=== PATIENT | female | born 1995 | race American Indian/Alaskan Native ===

== ENCOUNTER 2018-09-08 11:36 | Emergency (ER) | payer OTHER ==
[2018-09-08 11:47] VITALS: BP 116/71
--- NOTE | 2018-09-08 11:51 | Emergency Department Report ---
ED Rash HPI - HPI Chief Complaint: Eye Problems Stated Complaint: SWOLLEN EYES/MOUTH/BREAKOUTS Time Seen by Provider: 09/08/18 11:44 Duration: 5 Days Location: Other Suspected Cause: Unknown Rash Symptoms: No Itching, No Facial Swelling, No Tongue/Oral Swelling, No Breathing Difficulties, No Choking Sensation, No Wheezing/Dyspnea, No Peeling, No Blistering, No Fever, No Lightheaded, No Malaise, No Myalgias Severity: mild Other History: PRESENTS WITH EYE PUFFINESS AND CRACKED CORNER LIPS. NEW TO AREA. NO FEVER. NO COUGH. HAS TAKEN NO OTC MEDS ED Review of Systems ROS: Stated complaint: SWOLLEN EYES/MOUTH/BREAKOUTS Other details as noted in HPI Comment: All other systems reviewed and negative ED Past Medical Hx - Past Medical History Previous Medical History?: No - Surgical History Past Surgical History?: No - Family History Family history: no significant - Social History Smoking Status: Never Smoker Substance Use Type: None - Medications Home Medications: Home Medications Medication Instructions Recorded Confirmed Last Taken Type Coconut Oil/Beeswax/Safflower [Lip 90 gm TP QID #1 oint...g. 09/08/18 Unknown Rx [place] [employer] Natural] Fluticasone [Flonase] 1 spray NS QDAY #1 bottle 09/08/18 Unknown Rx Prednisone [predniSONE 10 mg 10 mg PO .TAPER #1 tab.ds.pk 09/08/18 Unknown Rx (6-Day Pack, 21 Tabs)] Rash Exam - Exam General: Vital signs noted. No distress. Alert and acting appropriately. HEENT: No Periorbital Edema, No Conjuctival Injection, No Chemosis, No Perioral Edema, No Tongue Edema, No Uvular Edema, No Compromised Airway, No Drooling Lungs: Yes Good Air Exchange, No Wheezes, No Ronchi, No Stridor, No Cough, No Labored Respirations Heart: Yes Regular, No Murmur Skin: No Urticarial Rash Other: Positive: Abdomen Normal, Neurologic Normal, Musculoskeletal Normal ED Medical Decision Making - Medical Decision Making Vital Signs 09/08/18 11:41 Temperature 98.2 F Pulse Rate 60 Respiratory 18 Rate Blood Pressure 116/71 [Right] O2 Sat by Pulse 100 Oximetry NEW TO [facility] FROM [place] HAS PUFFY EYES AND CRACKED CORNERS OF HER MOUTH NO PMH NO RX VSS HEALTHY FEMALE DC HOME WITH DC PLAN OF CARE. Critical care attestation.: If time is entered above; I have spent that time in minutes in the direct care of this critically ill patient, excluding procedure time. ED Disposition Clinical Impression: Allergic conjunctivitis, Seasonal allergies Disposition: DC-01 TO HOME OR SELFCARE Is pt being admited?: No Does the pt Need Aspirin: No Condition: Stable Instructions: Conjunctivitis (ED), Allergic Rhinitis (ED) Additional Instructions: HYDRATE WELL WITH WATER MEDS ORDERED TODAY ANABELLA LIP BALM TO YOUR LIPS FOLLOW UP PCP REFERRAL BELOW Prescriptions: Fluticasone [Flonase] 1 spray NS QDAY #1 bottle Coconut Oil/Beeswax/Safflower [Lip [place] [employer] Natural] 90 gm TP QID #1 oint...g. Prednisone [predniSONE 10 mg (6-Day Pack, 21 Tabs)] 10 mg PO .TAPER #1 tab.ds.pk Referrals: [facility] [Outside] - 3-5 Days Time of Disposition: 11:49
== END 2018-09-08 12:00 | disposition home or self-care (01) ==
LOC: ED 11:36
DX: H10.13 Acute atopic conjunctivitis, bilateral (principal); J30.2 Other seasonal allergic rhinitis
CPT/HCPCS: 99282

== ENCOUNTER 2018-10-18 09:30 | Emergency (ER) | payer SELFPAY ==
[2018-10-18 09:44] VITALS: BP 106/71
[2018-10-18] MEDS ORDERED: IBUPROFEN PO ONE (10:42)
[2018-10-18] MEDS ORDERED: IBUPROFEN ONE (10:42)
--- NOTE | 2018-10-18 10:43 | Emergency Department Report ---
ED ENT HPI - General Chief complaint: Dental/Oral Stated complaint: TOOTHACHE Time Seen by Provider: 10/18/18 10:18 Source: patient Mode of arrival: Ambulatory Limitations: No Limitations - History of Present Illness Initial comments: Patient is a 23-year-old [place] female who has pain at tooth #15 for the last week which is now worsening with swelling to the face. Patient states is been no problems swallowing or difficulty breathing. Patient states the pain is a 10 out of 10 in severity and she is unable to eat secondary to this pain. Patient states she hasn't eaten in 2-3 days. Patient denies any lightheadedness. Patient states is been no fevers chills nausea vomiting. - Related Data Previous Rx's Medication Instructions Recorded Last Taken Type Coconut Oil/Beeswax/Safflower [Lip 90 gm TP QID #1 oint...g. 09/08/18 Unknown Rx [place] [employer] Natural] Fluticasone [Flonase] 1 spray NS QDAY #1 bottle 09/08/18 Unknown Rx Prednisone [predniSONE 10 mg 10 mg PO .TAPER #1 tab.ds.pk 09/08/18 Unknown Rx (6-Day Pack, 21 Tabs)] Ibuprofen [Motrin 600 MG tab] 600 mg PO Q8H PRN #20 tablet 10/18/18 Unknown Rx Penicillin Vk [Veetids TAB] 250 mg PO QID #28 tablet 10/18/18 Unknown Rx traMADol [Ultram] 50 mg PO Q6HR PRN #12 tablet 10/18/18 Unknown Rx Allergies Allergy/AdvReac Type Severity Reaction Status Date / Time No Known Allergies Allergy Verified 09/08/18 11:37 ED Dental HPI - General Chief complaint: Dental/Oral Stated complaint: TOOTHACHE Time Seen by Provider: 10/18/18 10:18 Source: patient Mode of arrival: Ambulatory Limitations: No Limitations - Related Data Previous Rx's Medication Instructions Recorded Last Taken Type Coconut Oil/Beeswax/Safflower [Lip 90 gm TP QID #1 oint...g. 09/08/18 Unknown Rx [place] [employer] Natural] Fluticasone [Flonase] 1 spray NS QDAY #1 bottle 09/08/18 Unknown Rx Prednisone [predniSONE 10 mg 10 mg PO .TAPER #1 tab.ds.pk 09/08/18 Unknown Rx (6-Day Pack, 21 Tabs)] Ibuprofen [Motrin 600 MG tab] 600 mg PO Q8H PRN #20 tablet 10/18/18 Unknown Rx Penicillin Vk [Veetids TAB] 250 mg PO QID #28 tablet 10/18/18 Unknown Rx traMADol [Ultram] 50 mg PO Q6HR PRN #12 tablet 10/18/18 Unknown Rx Allergies Allergy/AdvReac Type Severity Reaction Status Date / Time No Known Allergies Allergy Verified 09/08/18 11:37 ED Review of Systems ROS: Stated complaint: TOOTHACHE Other details as noted in HPI Comment: All other systems reviewed and negative ED Past Medical Hx - Past Medical History Previous Medical History?: No - Surgical History Past Surgical History?: No - Social History Smoking Status: Never Smoker Substance Use Type: None - Medications Home Medications: Home Medications Medication Instructions Recorded Confirmed Last Taken Type Coconut Oil/Beeswax/Safflower [Lip 90 gm TP QID #1 oint...g. 09/08/18 Unknown Rx [place] [employer] Natural] Fluticasone [Flonase] 1 spray NS QDAY #1 bottle 09/08/18 Unknown Rx Prednisone [predniSONE 10 mg 10 mg PO .TAPER #1 tab.ds.pk 09/08/18 Unknown Rx (6-Day Pack, 21 Tabs)] Ibuprofen [Motrin 600 MG tab] 600 mg PO Q8H PRN #20 tablet 10/18/18 Unknown Rx Penicillin Vk [Veetids TAB] 250 mg PO QID #28 tablet 10/18/18 Unknown Rx traMADol [Ultram] 50 mg PO Q6HR PRN #12 tablet 10/18/18 Unknown Rx ED Physical Exam - General Limitations: No Limitations General appearance: alert, in no apparent distress - Head Head exam: Present: atraumatic, normocephalic - Eye Eye exam: Present: normal appearance, PERRL, EOMI - ENT ENT exam: Present: mucous membranes moist - Expanded ENT Exam Expanded Ear exam: Present: normal external inspection Mouth exam: Present: tongue normal. Absent: tongue elevation Teeth exam: Present: dental caries, dental tenderness # (15), gingival enlargement Throat exam: Positive: normal inspection - Neck Neck exam: Present: normal inspection - Respiratory Respiratory exam: Present: normal lung sounds bilaterally. Absent: respiratory distress, wheezes, rales, rhonchi - Cardiovascular Cardiovascular Exam: Present: regular rate, normal rhythm. Absent: systolic murmur, diastolic murmur, rubs, gallop - GI/Abdominal GI/Abdominal exam: Present: soft, normal bowel sounds - Extremities Exam Extremities exam: Present: normal inspection - Back Exam Back exam: Present: normal inspection - Neurological Exam Neurological exam: Present: alert, oriented X3 - Psychiatric Psychiatric exam: Present: normal affect, normal mood - Skin Skin exam: Present: warm, dry, intact, normal color. Absent: rash ED Course Vital Signs 10/18/18 09:43 Temperature 97.9 F Pulse Rate 57 L Respiratory 16 Rate Blood Pressure 106/71 O2 Sat by Pulse 100 Oximetry ED Medical Decision Making - Medical Decision Making Patient with a likely dental abscess of tooth #15. Patient started on antibiotic be discharged home. Critical care attestation.: If time is entered above; I have spent that time in minutes in the direct care of this critically ill patient, excluding procedure time. ED Disposition Clinical Impression: Dental abscess Disposition: DC-01 TO HOME OR SELFCARE Is pt being admited?: No Does the pt Need Aspirin: No Condition: Stable Instructions: Dental Abscess (ED) Referrals: AKASH GOOD MD [Primary Care Provider] - 3-5 Days Time of Disposition: 10:43
== END 2018-10-18 10:54 | disposition home or self-care (01) ==
LOC: ED 09:30
DX: K04.7 Periapical abscess without sinus (principal)